=== PATIENT | male | born 1960 | race Caucasian/White ===

== ENCOUNTER 2017-12-15 23:08 | Observation (INO) | payer OTHER, BC ==
[2017-12-16] MEDS ORDERED: Aspirin 81 mg CHEW TAB* 81 MG TAB.CHEW PO ONE (01:50)
[2017-12-16] MEDS ORDERED: Labetalol IV* 5 MG/ML 20 ML VIAL IV PUSH ONE ×2 (01:51→02:36)
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
[2017-12-16 02:32] LABS: ABS Basophils 0.1 10^3/ul (0-0.2); ABS Eosinophils 0.2 10^3/ul (0-0.6); ABS Lymphocytes 1.7 10^3/ul (1.0-4.8); ABS Monocytes 0.7 10^3/ul (0-0.8); ABS Neutrophils 3.4 10^3/ul (1.5-7.7); ABS Nucleated RBC 0 10^3/ul; Hematocrit 42 % (42-52); Hemoglobin 14.4 g/dl (14.0-18.0); Lymphocyte % 28.5 % (25-47); Mean Corpuscular HGB Conc 34 g/dl (31-36); Mean Corpuscular Hemoglobin 30 pg (27-31); Mean Corpuscular Volume 88 fL (80-94); Nucleated Red Blood Cells % 0.1; Platelet Count 213 10^3/ul (150-450); Red Blood Count 4.78 10^6/ul (4.00-5.40); Red Cell Distribution Width 13 % (10.5-15)
[2017-12-16 02:52] LABS: EGFR Non-African American 90.8 (>60)
[2017-12-16 02:54] LABS: INR 0.82 (0.77-1.02)
[2017-12-16] MEDS ORDERED: Enoxaparin(*) 100 MG/ML SYR SUBCUT ONE (05:21)
[2017-12-16] MEDS ORDERED: Clopidogrel TAB* 300 MG PO ONE (05:21)
[2017-12-16] MEDS ORDERED: Metoprolol Tartrate IV* 1 MG/ML 5 ML VIAL IV ONE (05:22)
[2017-12-16] MEDS ORDERED: Metoprolol Tartrate TAB* 25 MG PO SCH (07:00)
--- NOTE | 2017-12-16 07:56 | RAD ---
Indication: Midsternal chest pain radiating to the LEFT upper extremity. History of cardiomegaly and hypertension. Comparison: April 23, 2015 CT. Technique: Upright AP 0210 hours Report: Minimal subsegmental atelectasis at the mid to lower lung zones. The lungs and pleural spaces are otherwise clear. Negative for pneumothorax. Upper normal heart size. Unremarkable central pulmonary vasculature and mediastinal contours. IMPRESSION: #. No compelling evidence for pulmonary edema. #. Mild mid to lower lung zone atelectasis. R0
[2017-12-16 12:32] VITALS: BP 133/87
--- NOTE | 2017-12-16 13:41 | HP ---
HISTORY AND PHYSICAL: DATE OF ADMISSION: 12/16/17 ADMITTING PROVIDER: Primo Johnston MD PRIMARY CARE PROVIDER: Currently none, formerly Dr. Goncalves (now retired), then Kacey Loredo NP. He hopes to establish with Dr. Phan Farris, his 's primary care provider in the future. HISTORY OF PRESENT ILLNESS: Helio Mccloud is a 57-year-old male with past medical history of hypertension, depression, noncompliant with medications, who on the day prior to admission, , 12/15/17, noticed sensation of heaviness like he was "carrying lead" in his bilateral arms throughout the work day. Then around 10:30 p.m. that night he developed stuttering sharp pain in his left and central chest, 6 total episodes with about 5 to 10 minutes of total duration, and additionally had numbness in his left fourth and fifth fingers radiating up his forearm. That sharp chest pain has not returned, but still feels a little numb in his fingers. He was given aspirin 324 mg by his , presented to the emergency room, had an initial troponin that was 0.01, but second troponin was positive at 0.12. His EKGs demonstrated a normal sinus rhythm, some poor R-wave progression, no ST elevations or depressions, but he does have a T- wave inversion in lead III, which is unchanged from prior 2012 study. He was referred to hospitalist service for admission for NSTEMI. He admits to being noncompliant for the last 5 months with his verapamil and cannot remember last time he took his citalopram. He is not a "medication ania. " He did have treadmill stress test on 05/24/17, which was relatively benign per his report. He also had an echocardiogram in November 2014, which showed grade 1 diastolic dysfunction and no noted systolic function abnormalities. He had another 324 mg of aspirin in the ED. His blood pressure was little elevated to 169/109. He got doses of labetalol 10mg x2 and metoprolol 5mg x1, then given Plavix 300 mg and Lovenox 100 mg. PAST MEDICAL HISTORY: Hypertension, depression, intermittent binge drinking twice a week. MEDICATIONS: None currently. ALLERGIES: None. FAMILY HISTORY: His father of congestive heart failure at age 58. His mother is alive at age 72, has history of breast cancer. He has 1 biologic sister and 3 biological brothers, but cannot attest to anything about their health. SOCIAL HISTORY: The patient is a never smoker, except for rare cigarettes here and there while drinking. He drinks alcohol twice a week, occasionally heavy, which is 8 to 9 drinks a session. His medical surrogate is his , Berta Tompkins. He desires to be a full code. REVIEW OF SYSTEMS: A complete 14-point review of systems is negative except as per HPI. He denies any orthopnea, paroxysmal nocturnal dyspnea. He does attest to white phlegm over the last few months. He does fatigue easily, does not exercise. He does notice some fullness of his ankles by the end of the day and notices a difference when he takes his socks off. PHYSICAL EXAMINATION GENERAL APPEARANCE: No acute distress. VITAL SIGNS: Currently, temperature 97.8, pulse 77, respiratory rate 20, satting 93% on room air, blood pressure currently 128/91, on admission was 169/ 109. HEENT: Normocephalic, atraumatic. Pupils are equal, round, and reactive to light. Extraocular motions are intact. No scleral icterus. NECK: Supple. No cervical lymphadenopathy. LUNGS: Clear to auscultation bilaterally with no wheezing, rales, or rhonchi. CARDIOVASCULAR: Regular rate and rhythm. No murmurs, rubs, or gallops. ABDOMEN: Soft, nontender, nondistended. EXTREMITIES: Warm, well perfused. No peripheral edema. 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 Points to numbness in the left fourth and fifth fingers, but does have an intact sensation to light touch. SKIN: No lesions, no rashes. Permanent tattoos in particular at the back. DIAGNOSTIC STUDIES/LAB DATA: White count 6.0, hemoglobin 14.4, hematocrit 42, platelets 213. INR 0.82. Sodium 136, potassium 4.7, chloride 104, carbon dioxide 29, BUN 15, creatinine 0.87, glucose 112, magnesium 2.1. AST 18, ALT 24 , alk phos 59. Troponin initial 0.01, then 0.12. EKG at 2311 with normal sinus rhythm, a T-wave inversion in lead III, poor R- wave progression, similar repeated at 5:31 a.m. ASSESSMENT AND PLAN: Helio Mccloud is a 57-year-old male with past medical history of noncompliance to hypertension medication and some evidence of grade 1 diastolic dysfunction back in 2014 and a normal treadmill stress test in May 2017, presenting with stuttering sharp chest pain and elevated troponin of 0.12. No ischemic EKG changes, but poor R-wave progression. He is being admitted for non-ST elevation myocardial infarction, he has gotten Plavix 300 and Lovenox here in the ED along with a total of 650 mg of aspirin given by between and ED. Continue 81 mg aspirin daily. Trend troponins every 3 hours for another two or until peak. Low threshold for Cardiology consult, but I will keep him on n.p.o. for likely stress test at the very least later on in the day. I am getting hemoglobin A1c and lipid profile as these are not current. I am putting him on metoprolol 25 mg q.6 hours p.o. His last LDL was 138 in May 2015, HDL 41, cholesterol 219. No A1c in our system. He is a full code. Medical surrogate is his , Berta Mccloud. ADDENDUM: of note his 2nd elevated troponin was later re-run and found to be negative. [id number]/[facility] #: [id number] MTDD
--- NOTE | 2017-12-17 06:37 | DS ---
CC: Dr. James Carcamo; Dr. Phan Farris, potentially his new primary care provider * DISCHARGE SUMMARY: DATE OF ADMISSION: 12/16/17 DATE OF DISCHARGE: 12/16/17 ATTENDING FOR TODAY: Dr. James Carcamo. ATTENDING FOR THIS ADMISSION: Dr. Primo Johnston.* (DICTATED BY CHRISTI DOMINGUEZ NP) HOSPITAL COURSE: This is a 57-year-old male patient who presented with complaint of left-sided chest pain. The patient has a history of hypertension and is admittedly noncompliant with his medications. The day before his admission, he noticed he was having the sensation bilaterally throughout his arms and then a sharp sensation in the left chest. The patient stated it persisted on and off throughout the day with a total of 7 episodes. The patient also states that he had some numbness in his left fourth and fifth fingers that radiated up to the forearm. The patient did not have any acute ST segment changes. He did have modest T-wave inversion in lead 3, but this is unchanged from EKG studies done in 2013. Also of note, the patient did have an outpatient stress test with Dr. Church, which showed low-risk approximately 1 year ago. The patient came to the emergency department. His initial troponin was 0; however, his second troponin was elevated to 0.12. The patient then was admitted for chest pain to rule out ACS. After discussing this case with Dr. Maciej Tolentino, Dr. Tolentino elected to have the second troponin repeated because he did not feel that the jump to 0.12 was a real number. The troponin was repeated and run off the same sample, which ended up being 0. A followup troponin was also performed, which was also 0. At this point because he did have some hypertensive issues at admission, he had diastolic hypertension and he is noncompliant, it was determined that the patient should have a regular exercise stress test rather with no nuclear imaging. The patient underwent that test today, which showed low risk. It was explained to the patient that his noncompliance with his medications will lead to further issues. The patient stated that he was on verapamil and not taking it. He was placed on metoprolol short acting while he was here with good effect on his blood pressure. The patient will be discharged out on that medication as well as a baby aspirin and he was instructed to follow up with a new primary care provider as Dr. Goncalves has retired; Patient states that he would like to see Dr. Phan Farris who is his 's PCP in the near future. We will try to set him up with an appointment to see Dr. Farris in the office next week and evaluate his blood pressures and then follow up on some routine labs. PAST MEDICAL HISTORY: Significant for hypertension, depression, and intermittent EtOH use. DISCHARGE DIAGNOSES: 1. Hypertension with hypertensive urgency secondary to noncompliance. 2. Atypical chest pain. 3. History of depression, not on current medication. MEDICATIONS FOR DISCHARGE: Include: 1. Baby aspirin 81 mg daily. 2. Metoprolol tartrate 25 mg 2 times a day. REVIEW OF SYSTEMS ON THE DAY OF DISCHARGE: The patient denies any fever, fatigue, or chills. No dizziness, no headache. No chest pain, no shortness of breath. No nausea, no vomiting. No abdominal pain. No arthralgias or myalgias. No further constitutional complaints. PHYSICAL EXAM: The patient is alert, well appearing. Vital signs are blood pressure 133/87, heart rate 74, respiratory rate 20, O2 saturation 95% on room air with temperature of 97.8. HEENT: The patient is atraumatic and normocephalic. PERRLA with nonicteric sclerae. Oral mucosa is moist. Tongue is midline. Neck is supple and nontender. No JVD noted. No carotid bruit auscultated. Cardiovascular: S1, S2 present. No murmurs, gallops, or rubs. Rate and rhythm or currently regular. He has no ectopy on telemetry. Lungs are clear bilaterally to auscultation with no wheezing, rhonchi, or rales. Abdomen is soft, nontender, and nondistended. Positive bowel sounds in all 4 quadrants with no organomegaly noted. Musculoskeletal: There is no clubbing, no cyanosis, and no edema. He has full range of motion. Gross motor and sensation are intact. He has a steady gait. Neurologic: Grossly intact with no focalities. Psychiatric: He is cooperative and appropriate. LABORATORY DATA: WBCs 6.0, RBCs 4.78, hemoglobin 14.4, hematocrit 42, platelets 213. Sodium 136, potassium 4.7, chloride 104, CO2 29, BUN 15, creatinine 0.87, GFR 90.8, glucose 112. Hemoglobin A1c 5.8. Calcium 9.1, magnesium 2.1. Liver function within normal limits. Troponins negative at 0.01 , 0.00, 0.00, and 0.00. Triglycerides 137, cholesterol 173, LDL 104, and HDL 41.6. IMAGING: Chest x-ray upon admission shows no acute pulmonary process. He does have some mild lower lung atelectasis. Negative for pneumothorax. Lungs are otherwise clear. DISPOSITION: The patient will be discharged to home in the care of his . All questions were answered. The patient stated his understanding of his new medications and instructions at the time of discharge. FOLLOWUP: The patient was instructed to follow up with a primary care provider. He formerly saw Dr. Goncalves who has retired. He should call Dr. Farris' s office and apply as a new patient. Also, we can offer to the patient being seen in the [facility] for a blood pressure check in the next couple of days and also follow up with Dr. Church for further blood pressure management if needed. The patient was discharged in stable condition. All questions were answered. The patient stated his understanding of his followups. TIME SPENT: In excess of 30 minutes interfacing with the patient planning medications for discharge and coordinating with staff. CHRISTI DOMINGUEZ NP [id number]/[facility] #: [id number] WILLIE
[2017-12-17] MEDS ORDERED: Aspirin 81 mg CHEW TAB* 81 MG TAB.CHEW PO SCH (09:00)
== END 2017-12-16 16:24 | disposition home or self-care (01) ==
LOC: ED 23:08 → MEDTELE 12-16 05:29
PROVIDERS: ADMIT Internal Medicine; ATTEND Internal Medicine
DX: R07.89 Other chest pain (principal); I16.0 Hypertensive urgency; Z91.14 Patient's other noncompliance with medication regimen; Z79.82 Long term (current) use of aspirin; F32.9 Major depressive disorder, single episode, unspecified; Z72.0 Tobacco use
CPT/HCPCS: 36415; 71045; 80053; 80061; 82550; 83036; 83735; 84484; 85025; 85610; 85730; 86703; 86803; 93005; 93017; 96372; 96374; 96375; 96376; 99285; A9270-GY; G0378; J1650; J3490

== ENCOUNTER 2018-07-13 08:29 | Emergency (ER) | payer BC ==
[2018-07-13] MEDS ORDERED: Nitroglycerin TAB 0.4 MG* 0.4 MG TAB ONE (08:43)
[2018-07-13] MEDS ORDERED: Aspirin 81 mg CHEW TAB* 81 MG TAB.CHEW ONE (08:44)
[2018-07-13] MEDS ORDERED: Aspirin 81 mg CHEW TAB* 81 MG TAB.CHEW PO ONE (08:46)
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
[2018-07-13 09:43] LABS: Activated Partial Thrombo Time 33.4 seconds (26.0-36.3); INR 0.85 (0.82-1.09)
[2018-07-13 10:06] LABS: ABS Basophils 0.1 10^3/ul (0-0.2); ABS Eosinophils 0.1 10^3/ul (0-0.6); ABS Lymphocytes 1.3 10^3/ul (1.0-4.8); ABS Monocytes 0.5 10^3/ul (0-0.8); ABS Neutrophils 2.8 10^3/ul (1.5-7.7); ABS Nucleated RBC 0 10^3/ul; Eosinophil % 2.4 %; Hematocrit 46 % (42-52); Hemoglobin 15.7 g/dL (14.0-18.0); Lymphocyte % 27.8 %; Mean Corpuscular HGB Conc 34 g/dL (31-36); Mean Corpuscular Hemoglobin 30 pg (27-31); Mean Corpuscular Volume 89 fL (80-94); Mean Platelet Volume 8.1 fL (7.4-10.4); Nucleated Red Blood Cells % 0.1; Platelet Count 227 10^3/uL (150-450); Red Blood Count 5.21 10^6 /uL (4.18-5.48); Red Cell Distribution Width 13 % (10.5-15); White Blood Count 4.7 10^3/uL (3.5-10.8)
[2018-07-13 10:25] LABS: ALT 24 U/L (7-52); Albumin 4.3 g/dL (3.2-5.2); Albumin/Globulin Ratio 1.5 (1-3); Alkaline Phosphatase 64 U/L (34-104); BUN/Creatinine Ratio 14.6 (8-20); Blood Urea Nitrogen 13 mg/dL (6-24); CO2 Carbon Dioxide 25 mmol/L (22-32); Calcium 9.4 mg/dL (8.6-10.3); Chloride 102 mmol/L (101-111); Creatine Kinase 63 U/L (10-223); EGFR Non-African American 88.4 (>60); Globulin 2.9 g/dL (2-4); Glucose 117 mg/dL (70-100); Sodium 135 mmol/L (135-145); Total Protein 7.2 g/dL (6.4-8.9)
[2018-07-13 10:26] LABS: Troponin I 0.01 ng/mL (<0.04)
[2018-07-13 10:28] LABS: CKMB ng/mL 0.7 ng/mL (0.6-6.3)
[2018-07-13 10:59] LABS: Anion Gap 8 mmol/L (2-11)
[2018-07-13 11:05] LABS: TSH (Thyroid Stimulating Horm) 1.23 mcIU/mL (0.34-5.60)
[2018-07-13 12:11] LABS: Potassium Redraw 4.2 mmol/L (3.5-5.0)
[2018-07-13 14:02] VITALS: BP 139/95
== END 2018-07-13 14:02 | disposition home or self-care (01) ==
LOC: ED 08:29
DX: R07.9 Chest pain, unspecified (principal); I10 Essential (primary) hypertension; Z91.14 Patient's other noncompliance with medication regimen; K21.9 Gastro-esophageal reflux disease without esophagitis; Z79.82 Long term (current) use of aspirin; R73.03 Prediabetes
CPT/HCPCS: 36415; 71045; 80053; 82550; 82553; 83605; 83735; 83880; 84443; 84484; 85025; 85610; 85730; 86850; 86900; 86901; 93005; 99284; A9270-GY

== ENCOUNTER 2019-05-05 10:09 | Emergency (ER) | payer BC ==
[2019-05-05 10:23] VITALS: BP 150/99
[2019-05-05 10:47] LABS: Influenza A Molecular Negative (Negative); Influenza B Molecular Negative (Negative)
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
== END 2019-05-05 12:20 | disposition home or self-care (01) ==
LOC: UCEAST 10:09
DX: R05 Cough (principal); J02.9 Acute pharyngitis, unspecified; R53.83 Other fatigue; R50.9 Fever, unspecified; R52 Pain, unspecified; I10 Essential (primary) hypertension; Z79.82 Long term (current) use of aspirin; Z79.899 Other long term (current) drug therapy
CPT/HCPCS: 87651; 99211; G0463